=== PATIENT | male | born 1995 | race African-American/Black ===

== ENCOUNTER 2017-11-21 16:12 | Emergency (ER) | payer SELFPAY ==
[2017-11-21] MEDS ORDERED: Ondansetron 4 MG Tab.DIS PO ONE (16:29)
--- NOTE | 2017-11-21 16:32 | EDM.PDOC ---
ED HPI GENERAL MEDICAL PROBLEM - General Chief Complaint: Gastrointestinal Problem Stated Complaint: POSSIBLE FOOD POISONING Time Seen by Provider: 11/21/17 16:19 Source of Information: Reports: Patient History Limitations: Reports: No Limitations - History of Present Illness INITIAL COMMENTS - FREE TEXT/NARRATIVE: History of present illness: []Patient states he ate a butter finger before 3 PM and has been vomiting ever since with abdominal cramping. Review of systems: As per history of present illness and below otherwise all systems reviewed and negative. Past medical history: As per history of present illness and as reviewed below otherwise noncontributory. Surgical history: As per history of present illness and as reviewed below otherwise noncontributory. Social history: No reported history of drug or alcohol abuse. Family history: As per history of present illness and as reviewed below otherwise noncontributory. Physical exam: General: Well developed, well nourished in NAD HEENT: Atraumatic, normocephalic, pupils reactive, negative for conjunctival pallor or scleral icterus, mucous membranes moist, throat clear, neck supple, nontender, trachea midline. Lungs: Clear to auscultation, breath sounds equal bilaterally, chest nontender. Heart: S1S2, regular, negative for clicks, rubs, or JVD. Abdomen: Soft, nondistended, nontender no rebound or guarding. Negative for masses or hepatosplenomegaly. Negative for costovertebral tenderness. Pelvis: Stable nontender. Genitourinary: Deferred. Rectal: Deferred. Extremities: Atraumatic, negative for cords or calf pain. Neurovascular unremarkable. Neuro: Awake, alert, oriented. Cranial nerves II through XII unremarkable. Cerebellum unremarkable. Motor and sensory unremarkable throughout. Exam nonfocal. Diagnostics: [] Therapeutics: []Toradol, Zofran Impression: [] Plan: [] Definitive disposition and diagnosis as appropriate pending reevaluation and review of above. Abdominal Pain Score (Numeric/FACES): 8 - Related Data Allergies Allergy/AdvReac Type Severity Reaction Status Date / Time No Known Allergies Allergy Verified 11/21/17 16:31 Home Meds: Home Meds Ondansetron [Zofran ODT] 4 mg PO Q6H PRN #12 tab.dis 11/21/17 [Rx] Past Medical History Cardiovascular History: Reports: Heart Murmur ED ROS GENERAL - Review of Systems Review Of Systems: See Below (See history of present illness) ED EXAM, GI/ABD - Physical Exam Exam: See Below (See history of present illness) Course - Vital Signs Last Recorded V/S: Last Vital Signs Temp 97.8 F 11/21/17 16:29 Pulse 86 11/21/17 16:29 Resp 18 11/21/17 16:29 BP 93/42 L 11/21/17 16:29 Pulse Ox 98 11/21/17 16:29 - Orders/Labs/Meds Meds: Medications Discontinued Medications Generic Name Dose Route Start Last Admin Trade Name Freq PRN Reason Stop Dose Admin Ketorolac Tromethamine 60 mg 11/21/17 16:34 11/21/17 16:45 Toradol IM 11/21/17 16:35 60 mg ONETIME ONE Administration Ketorolac Tromethamine Confirm 11/21/17 16:44 11/21/17 16:48 Toradol Administered 11/21/17 16:45 Not Given Dose 60 mg .ROUTE .STK-MED ONE Ondansetron HCl 4 mg 11/21/17 16:29 11/21/17 16:33 Zofran Odt PO 11/21/17 16:30 4 mg ONETIME ONE Administration Departure - Departure Time of Disposition: 17:03 Disposition: Home, Self-Care 01 Condition: Good Clinical Impression: Food poisoning Qualifiers: Encounter type: initial encounter Injury intent: undetermined intent Qualified Code(s): T62.94XA - Toxic effect of unspecified noxious substance eaten as food , undetermined, initial encounter - Discharge Information Prescriptions: Ondansetron [Zofran ODT] 4 mg PO Q6H PRN #12 tab.dis PRN Reason: Nausea Referrals: PCP,None [Primary Care Provider] - Forms: ED Department Discharge Additional Instructions: The following information is given to patients seen in the emergency department who are being discharged to home. This information is to outline your options for follow-up care. We provide all patients seen in our emergency department with a follow-up referral. The need for follow-up, as well as the timing and circumstances, are variable depending upon the specifics of your emergency department visit. If you don't have a primary care physician on staff, we will provide you with a referral. We always advise you to contact your personal physician following an emergency department visit to inform them of the circumstance of the visit and for follow-up with them and/or the need for any referrals to a consulting specialist. The emergency department will also refer you to a specialist when appropriate. This referral assures that you have the opportunity for follow-up care with a specialist. All of these measure are taken in an effort to provide you with optimal care, which includes your follow-up. Under all circumstances we always encourage you to contact your private physician who remains a resource for coordinating your care. When calling for follow-up care, please make the office aware that this follow-up is from your recent emergency room visit. If for any reason you are refused follow-up, please contact the [facility] Emergency Department at and asked to speak to the emergency department charge nurse. Ayo Mera for pain and nausea
[2017-11-21] MEDS ORDERED: Ketorolac 60 MG/2 ML SDV IM ONE (16:34)
[2017-11-21] MEDS ORDERED: Ketorolac 60 MG/2 ML SDV ONE (16:44)
[2017-11-21 17:57] VITALS: BP 96/49
== END 2017-11-21 17:30 | disposition home or self-care (01) ==
LOC: MW.ED 16:12
DX: T62.94XA Toxic effect of unspecified noxious substance eaten as food, undetermined, initial encounter (principal)
CPT/HCPCS: 96372; 99284; A9270; J1885

== ENCOUNTER 2023-12-04 19:25 | Emergency (ER) | payer SELFPAY ==
[2023-12-04 19:40] LABS: BASOPHILS ABSOLUTE AUTO 0.03 K/uL (0.00-0.20); BASOPHILS PERCENT AUTO 0.5 % (0.0-1.0); EOSINOPHILS ABSOLUTE AUTO 0.04 K/uL (0.00-0.45); EOSINOPHILS PERCENT AUTO 0.7 % (0.0-6.0); HEMOGLOBIN 13.6 g/dL (14.0-18.0); IMMATURE GRAN ABSOLUTE AUTO 0.01 K/uL (0.00-0.05); IMMATURE GRAN PERCENT AUTO 0.2 % (0.0-0.4); LYMPHOCYTES ABSOLUTE AUTO 2.15 K/uL (1.00-4.80); MEAN CORPUSCULAR HEMOGLOBIN 32.8 pg (28.0-32.0); MEAN CORPUSCULAR HGB CONC 35.8 g/dL (32.0-36.0); MEAN CORPUSCULAR VOLUME 91.6 fL (83.0-99.0); MEAN PLATELET VOLUME 9.3 fL (9.4-12.4); MONOCYTES ABSOLUTE AUTO 0.51 K/uL (0.00-0.80); MONOCYTES PERCENT AUTO 8.8 % (0.0-8.0); NEUTROPHILS ABSOLUTE AUTO 3.07 K/uL (1.80-7.70); NEUTROPHILS PERCENT AUTO 52.8 % (41.0-71.0); PLATELET COUNT,PLT 160 K/uL (150-400); RED BLOOD CELL COUNT 4.15 M/uL (4.52-5.90); WHITE BLOOD CELL COUNT,WBC 5.81 K/uL (3.9-11.3)
[2023-12-04] MEDS: Sodium Chloride 0.9% 1,000 ML IV ONE (19:44)
[2023-12-04] MEDS: Ondansetron 4 MG/2 ML SDV IVPUSH ONE (19:45)
[2023-12-04] MEDS: Morphine 4 MG/ML Syringe IVPUSH ONE (19:45)
[2023-12-04] MEDS: Ketorolac 30 MG/ML SDV IVPUSH ONE (19:45)
[2023-12-04 20:03] LABS: A/G RATIO 1.1 (0.9-1.6); ALBUMIN 4.2 g/dL (3.4-5.0); BILIRUBIN TOTAL 0.9 mg/dL (0.2-1.0); CALCIUM 8.8 mg/dL (8.5-10.1); CARBON DIOXIDE,CO2 25.5 mmol/L (21.0-32.0); CREATININE 0.9 mg/dL (0.8-1.3); EST CRCL DRUG DOSING (CG) 114.25 mL/min; POTASSIUM,K 3.5 mmol/L (3.5-5.1); PROTEIN TOTAL,TP 8.1 g/dL (6.4-8.2)
[2023-12-04 21:19] VITALS: BP 113/71; PULSE 61
== END 2023-12-04 21:19 | disposition home or self-care (01) ==
LOC: MW.ED 19:25
DX: S89.92XA Unspecified injury of left lower leg, initial encounter (principal); Z75.8 Other problems related to medical facilities and other health care; V86.55XA Driver of 3- or 4- wheeled all-terrain vehicle (ATV) injured in nontraffic accident, initial encounter; Y93.89 Activity, other specified
CPT/HCPCS: 36415; 73590; 80053; 82550; 85025; 96361; 96374; 96375; 99283; J1885; J2270; J2405; J7030